=== PATIENT | female | born 1985 | race Caucasian/White ===

== ENCOUNTER 2018-03-06 05:14 | Day surgery (SDC) | payer BC ==
[~2018-03-06] VITALS: Ht 162.6 cm; Wt 86.2 kg
[~2018-03-06 05:14] MED LIST: ERGOCALCIF50000 UNIT PO; LEXAPRO20 MG PO; MIRENA1 EACH IY; PROVENTIL HFA6.7 GM IH; VITAMIN B COMP1 EACH PO; XANAX0.5 MG PO
[2018-03-06 06:11] VITALS: BP 111/70
[2018-03-06] MEDS ORDERED: PROMETHAZINE HC25 M1 PO (09:08)
[2018-03-06] MEDS ORDERED: IBUPROFEN800 MG PO (09:09)
[2018-03-06] MEDS ORDERED: ENDOCET 5-3251 EACH PO (09:09)
[2018-03-06 11:47] VITALS: BP 94/60
[2018-03-06 12:44] VITALS: BP 121/66
[2018-03-06 15:05] VITALS: BP 125/73
== END 2018-03-06 15:15 | disposition home or self-care (01) ==
LOC: SDC 05:14
DX: R10.2 Pelvic and perineal pain (principal); N80.0 Endometriosis of uterus; N85.4 Malposition of uterus; N83.8 Other noninflammatory disorders of ovary, fallopian tube and broad ligament; Z30.432 Encounter for removal of intrauterine contraceptive device; J45.909 Unspecified asthma, uncomplicated; Z88.5 Allergy status to narcotic agent; Z88.8 Allergy status to other drugs, medicaments and biological substances; N85.8 Other specified noninflammatory disorders of uterus
CPT/HCPCS: 88307; J0131; J0330; J0690; J1170; J2250; Q0175